=== PATIENT | female | born 1995 | race Caucasian/White ===

== ENCOUNTER 2016-09-21 19:33 | Emergency (ER) | payer OTHER ==
[2016-09-21] MEDS ORDERED: IOPAMIDOL 370 (76%) 100 ML VIAL IV ONE (19:34)
[2016-09-21 20:49] LABS: ABSOLUTE NEUTROPHIL COUNT 3.7 K/mm3 (1.8-7.7); BASO # 0.1 K/mm3 (0.0-0.2); BASO % 1.1 % (0.2-1.0); EOS # 4.6 (0.0-0.5); EOS % 36.3 % (0.9-2.9); HEMATOCRIT 42.1 % (37.0-47.0); HEMOGLOBIN 13.8 gm/l (12.0-16.0); IMM NEUT% 0.2 % (0-1); LYMPH # 3.6 (1.0-4.8); LYMPH % 28.9 % (15-45); MEAN CELL VOLUME 87.2 fl (81.0-99.0); MEAN CORPUSCULAR HEMOGLOBIN 28.6 pg (27.0-31.0); MEAN CORPUSCULAR HGB CONC 32.8 g/dl (33.0-37.0); MEAN PLATELET VOLUME 9.8 fl (7.4-10.4); MONO # 0.5 (0.0-0.8); MONO % 3.9 % (4-12); NEUT % 29.6 % (43-75); PLATELET COUNT 259 K/mm3 (130-400); RED CELL DISTRIBUTION WIDTH 13.9 % (11.5-14.5)
[2016-09-21 21:09] LABS: CALCIUM 9.5 mg/dL (8.6-10.3)
[2016-09-21] MEDS ORDERED: LORAZEPAM 2 MG/ML 1ML SDV ONE (21:09)
[2016-09-21] MEDS ORDERED: ALBUTEROL/IPRATROPIUM 2.5/0.5 MG 3 ML/EACH DOSE ONE (21:09)
[2016-09-21 21:23] LABS: BAND 1 % (0-10); BASOPHIL 1 % (0-1); EOSINOPHIL 29 % (1-3); LYMPHOCYTE 39 % (15-45); MONOCYTE 1 % (4-12); NEUTROPHILS 28 % (43-75); TOTAL CELLS COUNTED 100
[2016-09-21 21:24] LABS: ATYPICAL LYMPHOCYTE 1 %; PLATELET ESTIMATE NORMAL (NORMAL)
--- NOTE | 2016-09-22 08:34 | CT ---
CHEST CTA HISTORY: Shortness of breath and chest pain. TECHNIQUE: Following the administration of 80 mL Isovue-370 intravenous contrast, contiguous axial images were acquired from the thoracic inlet to the diaphragmatic hiatus for CT pulmonary angiography. Three-dimensional images were not reconstructed. FINDINGS: PULMONARY ARTERIAL TREE: Technically adequate enhancement: No dominant filling defects. THORACIC AORTA: Normal caliber. No evidence of dissection. LUNGS: Scattered groundglass abnormality. Minor degrees of bronchial wall thickening. No mimi airspace consolidation or pneumothorax. No pleural effusion. Minimal airspace abnormality right lower lobe. BONIFACIO AND MEDIASTINUM: Residual thymic tissue. A subcarinal lymph node measures 1.6 cm in width. An aortopulmonary window lymph node measures 9 mm in width. AXILLAE: No grossly enlarged lymph nodes. UPPER ABDOMEN:No gross mass effect. OSSEOUS STRUCTURES: No grossly destructive lesions. IMPRESSION: 1. No CTA evidence of proximal order pulmonary embolus. 2. Minor airspace abnormality of the right lower lobe, suspicious for pneumonia. Groundglass abnormality and bronchial wall thickening, which can relate to atypical infection. Mild mediastinal adenopathy, likely reactive. Preliminary report relayed to the Emergency Medicine medical service by Dr. Isaac on 09/21/2016 at 2153 hours.
== END 2016-09-21 23:19 | disposition home or self-care (01) ==
LOC: ED 19:33
DX: D72.1 Eosinophilia (principal); F41.9 Anxiety disorder, unspecified; J45.909 Unspecified asthma, uncomplicated
CPT/HCPCS: 84703; 85025; 80048; 85651; 71275; 99284; 96374; 93005; 99283; J2060; Q9967

== ENCOUNTER 2016-11-01 11:34 | Emergency (ER) | payer OTHER ==
[2016-11-01] MEDS ORDERED: METHYLPRED SOD SUCCINATE 125 MG VIAL ONE (12:52)
[2016-11-01] MEDS ORDERED: ALBUTEROL/IPRATROPIUM 2.5/0.5 MG 3 ML/EACH DOSE ONE (12:59)
== END 2016-11-01 14:41 | disposition home or self-care (01) ==
LOC: ED 11:34
DX: J45.909 Unspecified asthma, uncomplicated (principal)
CPT/HCPCS: 94640; 99283 ×2; 96372; 93005; J2930